=== PATIENT | female | born 1975 | race African-American/Black ===

== ENCOUNTER 2016-05-11 19:46 | Emergency (ER) | payer OTHER ==
[~2016-05-11] VITALS: Ht 165.1 cm; Wt 79.4 kg
[~2016-05-11 19:46] MED LIST: NORCO 5-325 TA1 EACH PO; TRIAMCINOLONE A15 G1 TP
[2016-05-11 20:09] LABS: URINE BILIRUBIN NEGATIVE (Negative); URINE BLOOD NEGATIVE (Negative); URINE COLOR YELLOW; URINE GLUCOSE-RANDOM* NEGATIVE (Negative); URINE KETONES NEGATIVE (Negative); URINE LEUKOCYTES-REFLEX NEGATIVE (Negative); URINE PROTEIN (DIPSTICK) TRACE (Negative); URINE SPECIFIC GRAVITY >= 1.030 (1.003-1.035); URINE UROBILINOGEN 0.2 E.U./dl (0.2-1.0)
[2016-05-11 20:28] LABS: ABSOLUTE NEUTROPHILS 3.2 thou/uL (1.4-8.2); BASOPHILS 0.7 % (0.0-2.0); EOSINOPHILS 4.1 % (0.0-3.0); HEMATOCRIT 34.5 % (37.0-47.0); HEMOGLOBIN 10.9 gm/dL (12.0-15.0); LYMPHOCYTES 34.1 % (24.0-44.0); MCH 25.1 pg (26.0-34.0); MCHC 31.7 g/dL (28.0-37.0); MCV 79.2 fL (80.0-100.0); MONOCYTES 10.6 % (1.0-8.0); PLATELET COUNT 315 thou/uL (150-400); POLYS 50.5 % (36.0-66.0); RBC 4.36 mil/uL (4.20-5.00); RDW 16.4 % (10.5-14.5); WBC 6.4 thou/uL (4.0-11.0)
[2016-05-11 20:30] LABS: MANUAL DIFF NO
[2016-05-11 20:37] LABS: CALCIUM 9.2 mg/dL (8.5-10.1); CREATININE 0.8 mg/dL (0.6-1.3); POTASSIUM 3.8 mmol/L (3.5-5.1)
[2016-05-11 20:41] LABS: ALBUMIN 3.8 g/dL (3.4-5.0); TOTAL BILIRUBIN 0.2 mg/dL (<0.1-1.0); TOTAL PROTEIN 7.9 g/dL (6.4-8.2)
[2016-05-11] MEDS ORDERED: NORVASC10 MG PO (20:53)
[2016-05-11] MEDS ORDERED: PHENERGAN 25 MG25 M1 PO (21:20)
[2016-05-11] MEDS ORDERED: COLACE100 MG PO (21:20)
[2016-05-11 22:24] VITALS: BP 131/90
== END 2016-05-11 22:25 ==
LOC: ER 19:46
PROVIDERS: Physician Assistant
DX: R11.2 Nausea with vomiting, unspecified (principal); R10.84 Generalized abdominal pain; D64.9 Anemia, unspecified; I10 Essential (primary) hypertension